=== PATIENT | female | born 1995 | race Two or more races ===

== ENCOUNTER 2016-07-08 01:47 | Emergency (ER) | payer OTHER ==
[~2016-07-08] VITALS: Ht 162.6 cm; Wt 61.2 kg
[2016-07-08] MEDS ORDERED: IBUPROFEN 400 MG TABLET PO ONE (02:00)
--- NOTE | 2016-07-08 02:05 | NUR ---
[facility] SIGNED AND IN THE CHART.
[2016-07-08] MEDS ORDERED: IBUPROFEN 400 MG TABLET ONE (02:06)
--- NOTE | 2016-07-08 02:11 | NUR ---
PT REC'D MEDICATION ORDERED.
--- NOTE | 2016-07-08 02:11 | NUR ---
XRAY AT THE BEDSIDE. PT IS C/O CP WHEN LYING DOWN. "HURTS TO BREATH"
--- NOTE | 2016-07-08 03:01 | NUR ---
PT APPEARS TO BE RESTING COMFORTABLY WITH NO S/S OF PAIN OR DISTRESS.
--- NOTE | 2016-07-08 03:06 | NUR ---
Patient discharged to home in stable condition. Written and verbal after care instructions given. Patient verbalizes understanding of instruction AND RX. PT'S VSS. RESP EVEN AND UNLABORED. PT AMBULATED OUT WITH A SLOW STEADY GAIT.
[2016-07-08 03:15] VITALS: BP 103/59
== END 2016-07-08 03:06 | disposition home or self-care (01) ==
LOC: ER 01:49
DX: S20.212A Contusion of left front wall of thorax, initial encounter (principal); S30.1XXA Contusion of abdominal wall, initial encounter; S70.212A Abrasion, left hip, initial encounter; S70.211A Abrasion, right hip, initial encounter; V43.62XA Car passenger injured in collision with other type car in traffic accident, initial encounter; Y93.89 Activity, other specified; Y92.488 Other paved roadways as the place of occurrence of the external cause; Y99.8 Other external cause status
CPT/HCPCS: 71010; 72170; 99284; A4606; Z7610